=== PATIENT | female | born 1995 | race Two or more races ===

== ENCOUNTER 2018-08-20 10:53 | Emergency (ER) | payer SELFPAY ==
--- NOTE | 2018-08-20 11:15 | EDM.PDOC ---
ED HPI GENERAL MEDICAL PROBLEM - General Chief Complaint: General Stated Complaint: INJURED LEFT WRIST/RIGHT FOOT Time Seen by Provider: 08/20/18 11:03 - History of Present Illness INITIAL COMMENTS - FREE TEXT/NARRATIVE: HISTORY AND PHYSICAL: History of present illness: Patient a 22-year-old female who presents with right foot/ankle/left wrist injury from a fall one day prior there is no head or neck pain or trauma or other concern. She has had prior foot surgery and does have a pain from her ORIF previously.. Review of systems: As per history of present illness and below otherwise all systems reviewed and negative. Past medical history: As per history of present illness and as reviewed below otherwise noncontributory. Surgical history: As per history of present illness and as reviewed below otherwise noncontributory. Social history: No reported history of drug or alcohol abuse. Family history: As per history of present illness and as reviewed below otherwise noncontributory. Physical exam: HEENT: Atraumatic, normocephalic, pupils reactive, negative for conjunctival pallor or scleral icterus, mucous membranes moist, throat clear, neck supple, nontender, trachea midline. Lungs: Clear to auscultation, breath sounds equal bilaterally, chest nontender. Heart: S1S2, regular, negative for clicks, rubs, or JVD. Abdomen: Soft, nondistended, nontender. Negative for masses or hepatosplenomegaly. Negative for costovertebral tenderness. Pelvis: Stable nontender. Genitourinary: Deferred. Rectal: Deferred. Extremities: Patient is some mild tenderness small swelling over the dorsal aspect of her right foot Achilles tendon is intact is no other significant findings in the form of point tenderness crepitation or gross deformity left wrist has some mild tenderness and swelling over the dorsal aspect is no point tenderness gross deformity CMS and neurovascular is unremarkable throughout Neuro: Awake, alert, oriented. Cranial nerves II through XII unremarkable. Cerebellum unremarkable. Motor and sensory unremarkable throughout. Exam nonfocal. Diagnostics: HCG x-ray left wrist x-ray right foot/ankle Therapeutics: To be determined Impression: #1 left wrist injury #2 right foot/ankle injury Definitive disposition and diagnosis as appropriate pending reevaluation and review of above. - Related Data Allergies Allergy/AdvReac Type Severity Reaction Status Date / Time No Known Allergies Allergy Verified 08/20/18 11:10 Home Meds: Home Meds . [No Known Home Meds] 08/20/18 [History] ED ROS GENERAL - Review of Systems Review Of Systems: ROS reveals no pertinent complaints other than HPI. ED EXAM, GENERAL - Physical Exam Exam: See Below (See dictation) Course - Vital Signs Last Recorded V/S: Last Vital Signs Temp 36.3 C 08/20/18 11:13 Pulse 86 08/20/18 11:13 Resp 15 08/20/18 11:13 BP 125/86 08/20/18 11:13 Pulse Ox 97 08/20/18 11:13 - Orders/Labs/Meds Orders: Active Orders 24 hr Category Date Time Status Ankle Min 3V Rt [CR] Stat Exams 08/20/18 11:04 Taken Foot 2V Rt [CR] Stat Exams 08/20/18 11:04 Taken Wrist Comp Min 3V Lt [CR] Stat Exams 08/20/18 11:09 Taken Labs: Laboratory Tests 08/20/18 Range/Units 11:05 Urine HCG, Qual NEGATIVE (NEGATIVE) Meds: Medications Discontinued Medications Generic Name Dose Route Start Last Admin Trade Name Joo PRN Reason Stop Dose Admin Ketorolac Tromethamine 60 mg 08/20/18 11:57 Toradol IM 08/20/18 11:58 ONETIME ONE Departure - Departure Time of Disposition: 12:00 Disposition: Home, Self-Care 01 Condition: Good Clinical Impression: Wrist injury, Foot injury - Discharge Information Referrals: PCP,None [Primary Care Provider] - Forms: ED Department Discharge Additional Instructions: The following information is given to patients seen in the emergency department who are being discharged to home. This information is to outline your options for follow-up care. We provide all patients seen in our emergency department with a follow-up referral. The need for follow-up, as well as the timing and circumstances, are variable depending upon the specifics of your emergency department visit. If you don't have a primary care physician on staff, we will provide you with a referral. We always advise you to contact your personal physician following an emergency department visit to inform them of the circumstance of the visit and for follow-up with them and/or the need for any referrals to a consulting specialist. The emergency department will also refer you to a specialist when appropriate. This referral assures that you have the opportunity for followup care with a specialist. All of these measure are taken in an effort to provide you with optimal care, which includes your followup. Under all circumstances we always encourage you to contact your private physician who remains a resource for coordinating your care. When calling for followup care, please make the office aware that this follow-up is from your recent emergency room visit. If for any reason you are refused follow-up, please contact the [facility] emergency department at and asked to speak to the emergency department charge nurse. [facility] - Orth[facility] Professional [address], [address] [place] [address] Follow-up primary medical doctor and/or Orth O as needed as discussed crutches as directed Motrin/Tylenol as directed return as needed as discussed - My Orders Last 24 Hours: My Active Orders 08/20/18 11:04 Ankle Min 3V Rt [CR] Stat Foot 2V Rt [CR] Stat 08/20/18 11:09 Wrist Comp Min 3V Lt [CR] Stat - Assessment/Plan Last 24 Hours: My Active Orders 08/20/18 11:04 Ankle Min 3V Rt [CR] Stat Foot 2V Rt [CR] Stat 08/20/18 11:09 Wrist Comp Min 3V Lt [CR] Stat
[2018-08-20] MEDS ORDERED: Ketorolac 60 MG/2 ML SDV IM ONE (11:57)
--- NOTE | 2018-08-20 12:34 | CR ---
EXAMINATION: Right foot and right ankle HISTORY: Pain COMPARISON: None TECHNIQUE: 2 views of the right foot and 2 views right ankle FINDINGS: There is no acute osseous abnormality, dislocation, or fracture. Mild hallux valgus is noted. Single screw is noted fixating the third metatarsal. Ankle mortise and talar dome are intact. IMPRESSION: No acute osseous abnormality identified.
--- NOTE | 2018-08-20 12:36 | CR ---
EXAMINATION: Left wrist HISTORY: Pain COMPARISON: None TECHNIQUE: 3 views FINDINGS/IMPRESSION: There is no acute osseous abnormality, dislocation, or fracture. Bone mineralization and joint spaces are preserved. The radiocarpal alignment is normal.
== END 2018-08-20 12:37 | disposition home or self-care (01) ==
LOC: MW.ED 10:53
DX: S69.92XA Unspecified injury of left wrist, hand and finger(s), initial encounter (principal); S99.921A Unspecified injury of right foot, initial encounter; S99.911A Unspecified injury of right ankle, initial encounter; W19.XXXA Unspecified fall, initial encounter
CPT/HCPCS: 73110; 73610; 73620; 81025; 96372; 99283; J1885; 99282

== ENCOUNTER 2018-08-23 21:01 | Emergency (ER) | payer OTHER ==
--- NOTE | 2018-08-23 21:15 | EDM.PDOC ---
ED HPI GENERAL MEDICAL PROBLEM - General Stated Complaint: POSSIBLE INFECTION Time Seen by Provider: 08/23/18 21:04 - History of Present Illness INITIAL COMMENTS - FREE TEXT/NARRATIVE: HISTORY AND PHYSICAL: History of present illness: Patient's 22-year-old female presents with concern of right foot and low back pain patient had prior foot surgery and she did recently have an injury of her right foot and left wrist was her gait has been somewhat compromised due to the discomfort and she now subsequent developed some back soreness due to no urinary symptoms no fever chills nausea vomiting Review of systems: As per history of present illness and below otherwise all systems reviewed and negative. Past medical history: As per history of present illness and as reviewed below otherwise noncontributory. Surgical history: As per history of present illness and as reviewed below otherwise noncontributory. Social history: No reported history of drug or alcohol abuse. Family history: As per history of present illness and as reviewed below otherwise noncontributory. Physical exam: HEENT: Atraumatic, normocephalic, pupils reactive, negative for conjunctival pallor or scleral icterus, mucous membranes moist, throat clear, neck supple, nontender, trachea midline. Lungs: Clear to auscultation, breath sounds equal bilaterally, chest nontender. Heart: S1S2, regular, negative for clicks, rubs, or JVD. Abdomen: Soft, nondistended, nontender. Negative for masses or hepatosplenomegaly. Negative for costovertebral tenderness. Pelvis: Stable nontender. Genitourinary: Deferred. Rectal: Deferred. Extremities: Atraumatic, negative for cords or calf pain. Neurovascular unremarkable. Neuro: Awake, alert, oriented. Cranial nerves II through XII unremarkable. Cerebellum unremarkable. Motor and sensory unremarkable throughout. Exam nonfocal. Diagnostics: CBC ESR CRP UA Therapeutics: None Impression: #1 medical screening exam #2 back pain probable muscle skeletal etiology Definitive disposition and diagnosis as appropriate pending reevaluation and review of above. - Related Data Allergies Allergy/AdvReac Type Severity Reaction Status Date / Time No Known Allergies Allergy Verified 08/20/18 11:10 Home Meds: Home Meds . [No Known Home Meds] 08/20/18 [History] Past Medical History - Past Health History Medical/Surgical History: Denies Medical/Surgical History - Infectious Disease History Infectious Disease History: Reports: None - Past Surgical History Musculoskeletal Surgical History: Reports: Other (See Below) Other Musculoskeletal Surgeries/Procedures:: Right ankle surgery. 10 screws placed. Social & Family History - Family History Family Medical History: Noncontributory - Caffeine Use Caffeine Use: Reports: Coffee ED ROS GENERAL - Review of Systems Review Of Systems: ROS reveals no pertinent complaints other than HPI. ED EXAM, GENERAL - Physical Exam Exam: See Below (See dictation) Departure - Departure Time of Disposition: 21:14 Disposition: Home, Self-Care 01 Condition: Good Clinical Impression: Encounter for medical screening examination, Back pain - Discharge Information Referrals: PCP,None [Primary Care Provider] - Additional Instructions: The following information is given to patients seen in the emergency department who are being discharged to home. This information is to outline your options for follow-up care. We provide all patients seen in our emergency department with a follow-up referral. The need for follow-up, as well as the timing and circumstances, are variable depending upon the specifics of your emergency department visit. If you don't have a primary care physician on staff, we will provide you with a referral. We always advise you to contact your personal physician following an emergency department visit to inform them of the circumstance of the visit and for follow-up with them and/or the need for any referrals to a consulting specialist. The emergency department will also refer you to a specialist when appropriate. This referral assures that you have the opportunity for followup care with a specialist. All of these measure are taken in an effort to provide you with optimal care, which includes your followup. Under all circumstances we always encourage you to contact your private physician who remains a resource for coordinating your care. When calling for followup care, please make the office aware that this follow-up is from your recent emergency room visit. If for any reason you are refused follow-up, please contact the [facility] emergency department at and asked to speak to the emergency department charge nurse. Motrin/Tylenol as directed follow-up primary medical doctor return as needed as discussed
== END 2018-08-23 22:00 | disposition home or self-care (01) ==
LOC: MW.ED 21:01
DX: M54.5 Low back pain (principal); M79.671 Pain in right foot
CPT/HCPCS: 36415; 85025; 85652; 86140; 99282; 99283

== ENCOUNTER 2018-09-17 23:26 | Emergency (ER) | payer SELFPAY ==
--- NOTE | 2018-09-17 23:36 | EDM.PDOC ---
ED HPI GENERAL MEDICAL PROBLEM - General Chief Complaint: Lower Extremity Injury/Pain Stated Complaint: RT FOOT HURTS Time Seen by Provider: 09/17/18 23:34 - History of Present Illness INITIAL COMMENTS - FREE TEXT/NARRATIVE: HISTORY AND PHYSICAL: History of present illness: Patient's a 22-year-old female who's been seen multiple times in the emergency department for chronic right foot pain she had prior ORIF of her foot in his chronic pain. Review of systems: As per history of present illness and below otherwise all systems reviewed and negative. Past medical history: As per history of present illness and as reviewed below otherwise noncontributory. Surgical history: As per history of present illness and as reviewed below otherwise noncontributory. Social history: No reported history of drug or alcohol abuse. Family history: As per history of present illness and as reviewed below otherwise noncontributory. Physical exam: HEENT: Atraumatic, normocephalic, pupils reactive, negative for conjunctival pallor or scleral icterus, mucous membranes moist, throat clear, neck supple, nontender, trachea midline. Lungs: Clear to auscultation, breath sounds equal bilaterally, chest nontender. Heart: S1S2, regular, negative for clicks, rubs, or JVD. Abdomen: Soft, nondistended, nontender. Negative for masses or hepatosplenomegaly. Negative for costovertebral tenderness. Pelvis: Stable nontender. Genitourinary: Deferred. Rectal: Deferred. Extremities: Atraumatic, negative for cords or calf pain. Neurovascular unremarkable. No gross deformity no erythema Neuro: Awake, alert, oriented. Cranial nerves II through XII unremarkable. Cerebellum unremarkable. Motor and sensory unremarkable throughout. Exam nonfocal. Diagnostics: X-ray right foot Therapeutics: None Impression: #1 chronic right foot pain Definitive disposition and diagnosis as appropriate pending reevaluation and review of above. right foot Pain Score (Numeric/FACES): 10 - Related Data Allergies Allergy/AdvReac Type Severity Reaction Status Date / Time No Known Allergies Allergy Verified 09/17/18 23:33 Home Meds: Home Meds . [No Known Home Meds] 08/20/18 [History] Past Medical History - Past Health History Medical/Surgical History: Denies Medical/Surgical History - Infectious Disease History Infectious Disease History: Reports: None - Past Surgical History Musculoskeletal Surgical History: Reports: Other (See Below) Other Musculoskeletal Surgeries/Procedures:: Right ankle surgery. 10 screws placed. Social & Family History - Family History Family Medical History: Noncontributory - Caffeine Use Caffeine Use: Reports: None Review of Systems - Review of Systems Review Of Systems: ROS reveals no pertinent complaints other than HPI. ED EXAM, GENERAL - Physical Exam Exam: See Below (dictation) Course - Vital Signs Last Recorded V/S: Last Vital Signs Temp 35.8 C 09/17/18 23:31 Pulse 97 09/17/18 23:31 Resp 18 09/17/18 23:31 BP 132/97 H 09/17/18 23:31 Pulse Ox 98 09/17/18 23:31 Departure - Departure Time of Disposition: 23:35 Disposition: Home, Self-Care 01 Condition: Good Clinical Impression: Chronic foot pain - Discharge Information Referrals: PCP,None [Primary Care Provider] - Additional Instructions: The following information is given to patients seen in the emergency department who are being discharged to home. This information is to outline your options for follow-up care. We provide all patients seen in our emergency department with a follow-up referral. The need for follow-up, as well as the timing and circumstances, are variable depending upon the specifics of your emergency department visit. If you don't have a primary care physician on staff, we will provide you with a referral. We always advise you to contact your personal physician following an emergency department visit to inform them of the circumstance of the visit and for follow-up with them and/or the need for any referrals to a consulting specialist. The emergency department will also refer you to a specialist when appropriate. This referral assures that you have the opportunity for followup care with a specialist. All of these measure are taken in an effort to provide you with optimal care, which includes your followup. Under all circumstances we always encourage you to contact your private physician who remains a resource for coordinating your care. When calling for followup care, please make the office aware that this follow-up is from your recent emergency room visit. If for any reason you are refused follow-up, please contact the [facility] emergency department at and asked to speak to the emergency department charge nurse. [facility] - Podiatry [address] [place] [id number] Fax: [phone] [facility] Specialty Care - Orthopedic Clinic Professional [address], [address] [place] [address] Diclofenac as prescribed follow-up with Orth and/or podiatry above as discussed return as needed as discussed
[2018-09-17] MEDS ORDERED: Diclofenac Sodium 75 MG Tab.EC PO ONE (23:53)
--- NOTE | 2018-09-18 00:09 | CR ---
Indication: Right foot pain. Technique: Right foot 2 views Comparison: None Findings: Bones: Deformity of the right 3rd metatarsal consistent with an old fracture with single screw fixation. No acute fracture. Joint spaces: Joint spaces are well maintained. No degenerative changes. Soft tissues: Unremarkable. Impression: No acute fracture or dislocation. Dictated by Werner Abrams MD @ Sep 18 2018 12:06AM Signed by Dr. Werner Abrams @ Sep 18 2018 12:08AM
== END 2018-09-18 00:17 | disposition home or self-care (01) ==
LOC: MW.ED 23:26
DX: M79.671 Pain in right foot (principal); G89.29 Other chronic pain
CPT/HCPCS: 73620; 99283; A9270; 99282